=== PATIENT | female | born 1995 | race Caucasian/White ===

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

== ENCOUNTER 2017-09-15 22:00 | Emergency (ER) | payer BC, MEDICAID ==
[2017-09-15 22:07] VITALS: BP 126/85; PULSE 82; RESP 18; O2SAT 96
[2017-09-15] MEDS ORDERED: NAPROXEN SODIUM 220 MG TAB PO ONE ×2 (22:24→23:00)
[2017-09-15] MEDS ORDERED: ACETAMINOPHEN 500 MG TAB PO ONE (22:25)
[2017-09-15] MEDS ORDERED: CLINDAMYCIN 150 MG CAP PO ONE (22:26)
--- NOTE | 2017-09-15 22:31 | EDPHY ---
H & P Stated Complaint: l side facial swelling Time Seen by Provider: 09/15/17 22:08 HPI/ROS: HPI The patient presents with left-sided facial swelling. She has a known impacted left lower wisdom tooth diagnosed in April. She has had intermittent pain ever since then. She developed facial swelling yesterday which has gotten progressively worse over the course of the day. She has had no fever. She has no difficulty swallowing. She has no drooling. She has no neck pain. REVIEW OF SYSTEMS Constitutional: No fever, no chills. Eyes: No discharge. ENT: No sore throat. Cardiovascular: No chest pain, no palpitations. Respiratory: No cough, no shortness of breath. Gastrointestinal: No abdominal pain, no vomiting. Genitourinary: No hematuria. Musculoskeletal: No back pain. Skin: No rashes. Neurological: No headache. PMHx: Healthy PHYSICAL General Appearance: Alert, no distress Eyes: Pupils equal and round no pallor or injection ENT, Mouth: Left lower wisdom tooth appears impacted with surrounding erythema of the gum line, there is tenderness of the buccal mucosa adjacent to this with slight erythema, there is left-sided facial swelling, posterior pharynx is non erythematous or edematous, there is no tenderness to the base of her tongue, there is no throat tenderness or erythema, Mucous membranes moist Respiratory: Breathing comfortably Neurological: A&O, moves all extremities Skin: Warm and dry, no rashes Musculoskeletal: Neck is supple non tender Extremities: symmetrical, full range of motion Psychiatric: Patient is oriented X 3, there is no agitation Source: Patient Exam Limitations: No limitations - Personal History LMP (Females 10-55): Now Current Tetanus/Diphtheria Vaccine: Yes Current Tetanus Diphtheria and Acellular Pertussis (TDAP): Yes - Medical/Surgical History Hx Asthma: No Hx Chronic Respiratory Disease: No Hx Diabetes: No Hx Cardiac Disease: No Hx Renal Disease: No Hx Cirrhosis: No Hx Alcoholism: No Hx HIV/AIDS: No Hx Splenectomy or Spleen Trauma: No Other PMH: denies - Social History Smoking Status: Current some day smoker Constitutional: Initial Vital Signs Temperature (C) 37.3 C 09/15/17 22:02 Heart Rate 82 09/15/17 22:02 Respiratory Rate 18 09/15/17 22:02 Blood Pressure 126/85 H 03/31/18 22:02 O2 Sat (%) 96 09/15/17 22:02 O2 Delivery Mode Room Air Allergies/Adverse Reactions: No Known Allergies Allergy (Unverified 08/19/16 00:56) Home Medications: Medication Instructions Recorded Corey 28 Tablet 09/15/17 Clindamycin HCl [Clindamycin] 300 mg PO TID #30 cap 09/15/17 Medical Decision Making Differential Diagnosis: This is a 22-year-old female with an impacted left lower wisdom tooth, now with a dental infection related to this. There is a fair amount of swelling to her left cheek, however no area of fluctuance is appreciated. Her posterior pharynx is normal appearing and non edematous, she does not have any submandibular tenderness or erythema. Differential diagnosis includes facial cellulitis, dental abscess, Ten's angina. Plan for treatment with clindamycin, will give her her 1st dose here and then a prescription to go home with. I will also give her ibuprofen and Tylenol to take around the clock. I have encouraged her to use ice packs. She has already established care with an oral surgeon in [place]. She will call tomorrow to arrange for follow-up. I anticipate she will need the tooth extracted. Departure - Departure Disposition: Home, Routine, Self-Care Clinical Impression: Dental infection Condition: Good Instructions: Dental Abscess (ED) Additional Instructions: It looks like year wisdom tooth is infected. I recommend you take Aleve 500 mg every 12 hr. In addition to this you can take acetaminophen 1000 mg every 6 hr. You should use an ice pack to help with the swelling. Please follow-up with your oral surgeon over the phone tomorrow. I suspect the wisdom tooth will need to be removed. Take the antibiotic as prescribed. You need to return to the emergency department if you have any difficulty swallowing or are worse in any way. Referrals: NONE *PRIMARY CARE P,. [Primary Care Provider] - As per Instructions Prescriptions: Clindamycin HCl [Clindamycin] 300 mg PO TID #30 cap
[2017-09-15 23:04] VITALS: TEMP 98.4
== END 2017-09-15 23:04 | disposition home or self-care (01) ==
DX: K04.7 Periapical abscess without sinus (principal); F17.200 Nicotine dependence, unspecified, uncomplicated

== ENCOUNTER 2018-02-10 03:14 | Emergency (ER) | payer BC ==
--- NOTE | 2018-02-10 03:54 | EDPHY ---
H & P Stated Complaint: [place] [place] Time Seen by Provider: 02/10/18 03:52 HPI/ROS: Chief Complaint: Foot laceration HPI: 22-year-old female lacerated her foot this morning when she stepped on a piece of broken glass from a broken bowl. Denies any other injuries. She is up -to-date in her tetanus. ROS: 10 point Review of Systems is negative except as noted in the HPI. PMH: Denies Social History: No smoking, no alcohol, no recreational drug use Family History: non-contributory Physical Exam: General: Awake, alert, no acute distress Left foot: Patient has a laceration on the medial aspect of her 5th toe.. No foreign bodies noted. No other injuries Skin: No rash - Personal History LMP (Females 10-55): 1-7 Days Ago Current Tetanus Diphtheria and Acellular Pertussis (TDAP): Unsure - Medical/Surgical History Hx Asthma: No Hx Chronic Respiratory Disease: No Hx Diabetes: No Hx Cardiac Disease: No Hx Renal Disease: No Hx Cirrhosis: No Hx Alcoholism: No Hx HIV/AIDS: No Hx Splenectomy or Spleen Trauma: No Other PMH: denies - Social History Smoking Status: Current some day smoker Constitutional: Initial Vital Signs Temperature (C) 36.9 C 02/10/18 03:16 Heart Rate 92 02/10/18 03:16 Respiratory Rate 16 02/10/18 03:16 Blood Pressure 105/68 02/10/18 03:16 O2 Sat (%) 98 02/10/18 03:16 O2 Delivery Mode Room Air Allergies/Adverse Reactions: No Known Allergies Allergy (Unverified 08/19/16 00:56) Home Medications: Medication Instructions Recorded Balziva 28 Tablet 09/15/17 Medical Decision Making Procedures: Procedure: Laceration repair. Verbal consent was obtained from the patient. The 2 cm laceration on the left 5th toe was anesthetized in the usual fashion. The wound was irrigated, draped and explored to its base with a gloved finger. There were no deep structures involved. No tendon injury was identified. The wound was repaired with 8, 5-0 Ethilon simple interrupted sutures. The wound repair was uncomplicated. The procedure was performed by myself. Departure - Departure Disposition: Home, Routine, Self-Care Clinical Impression: Laceration Condition: Good Instructions: Care For Your Stitches (ED), Laceration (ED) Additional Instructions: Sutures need to be removed in 10 days, you can return to the emergency department to have this performed. Return sooner for increasing pain, redness, discharge from the wound, fevers, chills, or any other concerns. Referrals: Renata Negron [place] [place] - As per Instructions
[2018-02-10 04:50] VITALS: BP 96/68
== END 2018-02-10 04:49 | disposition home or self-care (01) ==
PROC: 0HQNXZZ Repair Left Foot Skin, External Approach (ICD-10-PCS; principal; 2018-02-10)
DX: S91.115A Laceration without foreign body of left lesser toe(s) without damage to nail, initial encounter (principal); W25.XXXA Contact with sharp glass, initial encounter